=== PATIENT | male | born 1955 | race African-American/Black ===

== ENCOUNTER 2022-07-09 11:33 | Outpatient (CLI) | payer MEDICARE, SELFPAY ==
[2022-07-09 13:04] LABS: Basophils Percent Auto 0.2 % (0.2-1.2); Eosinophils Absolute Auto 0.1 K/mm3 (0-0.3); Eosinophils Percent Auto 0.9 % (0-4.4); Hematocrit 41.4 % (42.0-52.0); Hemoglobin 13.3 g/dL (14.0-18.0); Immature Granulocyte Absolute 0.04 K/mm3 (0.00-0.031); Immature Granulocyte Percent A 0.5 % (0-0.5); Lymphocytes Absolute Auto 0.92 K/mm3 (0.9-3.2); Lymphocytes Percent Auto 10.4 % (18.3-44.2); Mean Corpuscular HGB Conc 32.1 g/dl (32-36); Mean Corpuscular Hemoglobin 29.5 pg (26-34); Mean Corpuscular Volume 91.8 fl (80-100); Mean Platelet Volume 9.7 fl (7.4-10.4); Monocytes Absolute Auto 0.7 K/mm3 (0.1-0.6); Monocytes Percent Auto 7.4 % (2.6-8.5); Neutrophils Absolute Auto 7.1 K/mm3 (1.3-6.7); Neutrophils Percent Auto 80.6 % (45.5-73.1); Platelet Count Result 199 k/mm3 (150-375); Red Blood Count 4.51 M/mm3 (4.6-6.20); Red Cell Distribution Width 13.4 % (11.5-14.5); White Blood Count 8.8 K/mm3 (4.5-10.0)
[2022-07-09 19:08] LABS: Alanine Aminotransferase 27 U/L (6-50); Albumin Level 4.6 g/dL (3.5-5.1); Alkaline Phosphatase 79 U/L (38-126); Anion Gap 11 mmol/L (8-16); Aspartate Amino Transferase 39 U/L (17-59); Bilirubin,Total 0.7 mg/dL (0.2-1.3); Blood Urea Nitrogen 21 mg/dL (9-20); Calcium 9.6 mg/dL (8.4-10.2); Carbon Dioxide 29 mmol/L (22-30); Chloride 94 mmol/L (98-107); Cholesterol 251 mg/dL (0-200); Estimated Glomerular Filt Rate > 60; Glucose 95 mg/dL (65-110); HDL Direct 38 mg/dL; Potassium 3.7 mmol/L (3.4-5.0); Sodium 134 mmol/L (137-145); Triglycerides 96 mg/dL (<150)
[2022-07-09 19:19] LABS: LDL Cholesterol Direct 158 mg/dL
== END 2022-07-09 11:34 | disposition home or self-care (01) ==
LOC: ANHGOSHLAB 11:36
PROVIDERS: PCP Internal Medicine; Visit Provider Nurse Practitioner
DX: R53.83 Other fatigue (principal); Z12.5 Encounter for screening for malignant neoplasm of prostate; Z13.220 Encounter for screening for lipoid disorders; Z13.29 Encounter for screening for other suspected endocrine disorder; E78.5 Hyperlipidemia, unspecified
CPT/HCPCS: 36415; 80053; 80061; 84443; 85025

== ENCOUNTER 2022-08-28 10:45 | Outpatient (CLI) | payer MEDICARE, SELFPAY ==
--- NOTE | ~2022-08-28 | XR_ITS ---
EXAMINATION: XR chest 2V 08/28/2022 11:25 INDICATION: Chronic obstructive pulmonary disease PROCEDURE: 2 view chest COMPARISON: Comparison to multiple prior studies sequentially, with oldest reviewed study dated 07/22. FINDINGS: The lungs are clear. The lungs are hyperinflated which is consistent with, but not diagnost ic of chronic obstructive pulmonary disease. The cardiomediastinal silhouette is within normal limit s. There are no pleural effusions. There is no pneumothorax suspected. IMPRESSION: 1: NO ACUTE CARDIOPULMONARY DISEASE. Reviewed, dictated and finalized at location B.
== END 2022-08-28 10:46 | disposition home or self-care (01) ==
LOC: ANHIMG 10:48
PROVIDERS: PCP Internal Medicine; Visit Provider Internal Medicine Critical Care Medicine
DX: J44.9 Chronic obstructive pulmonary disease, unspecified (principal)
CPT/HCPCS: 71046

== ENCOUNTER 2022-09-17 12:06 | Outpatient (CLI) | payer MEDICARE, SELFPAY ==
--- NOTE | 2022-09-17 12:35 | ECHO_ITS ---
Patient Info Name: Jean Slater White Age: 67 years : 1955 Gender: Male Ht: 69 in Wt: 134 lbs BSA: 1.71 m2 HR: 56 bpm BP: 151 / 77 mmHg Technical Quality: Good Exam Date: 09/17/2022 1:07 PM Exam Location: [facility] Patient Status: Outpatient Admit Date: 09/17/2022 Staff Ordering Physician: Brea Adkins MD Shoe Stitcher Odd: Ciara Ayon RDCS Attending Provider: Brea Adkins MD Referring Physician: Jed AZEVEDO; Exam Type: CA echo doppler color flow Study Info Indications J44.9 - CHRONIC PBSTRUCTIVE PULMONARY DISEASE, UNSPECIFIED Complete two-dimensional, color flow and Doppler transthoracic echocardiogram is performed. Summary 1. Complete two-dimensional, color flow and Doppler transthoracic echocardiogram is performed. 2. Left ventricular chamber dimension is normal. 3. Left ventricular systolic function is normal, estimated at 55-60%. 4. The left ventricular diastolic function is grade I diastolic dysfunction. 5. E/e' 6 is not elevated. 6. Global longitudinal strain is abnormal at -15.6%. 7. No pulmonary hypertension, estimated pulmonary arterial systolic pressure is 27 mmHg. Left Ventricle E/e' 6 is not elevated. Global longitudinal strain is abnormal at -15.6%. Left ventricular chamber dimension is normal. Left ventricular systolic function is normal, estimated at 55-60%. The left ventricular diastolic function is grade I diastolic dysfunction. Right Ventricle Right ventricular systolic function is normal and with normal TAPSE 2.5 cm. Right ventricular chamber dimension is normal. Left Atria Left atrial chamber dimension is normal. Right Atria Right atrial chamber dimension is normal. Aortic Valve The aortic valve is trileaflet. There is no aortic valve stenosis. There is no aortic valve regurgitation. Pulmonic Valve There is no pulmonic regurgitation. Mitral Valve There is no mitral valve stenosis. There is no mitral valve regurgitation. Tricuspid Valve There is no tricuspid valve regurgitation. No pulmonary hypertension, estimated pulmonary arterial systolic pressure is 27 mmHg. Pericardium/Pleural There is no pericardial effusion. Inferior Vena Cava Normal inferior vena cava with >50% collapse upon inspiration consistent with normal right atrial pressure, 5 mmHg. Aorta The aortic root size at the sinus of Valsalva is normal. Left Ventricular Outflow Tract Name Value Normal LVOT 2D LVOT Diameter 2.0 cm LVOT Doppler LVOT Peak Gradient 3 mmHg LVOT Mean Gradient 1 mmHg LVOT VTI 16 cm LVOT VTI/AV VTI Ratio 0.9 LVOT Stroke Volume 47 ml LVOT CO 2.6 l/min LVOT CI 1.5 l/min/m2 Pulmonic Valve Name Value Normal RVOT Doppler
--- NOTE | 2022-09-25 15:26 | WPDPFTINT ---
PFT Procedure Performed PFT Procedure Performed Spirometry with Pre/Post Bronchodilator Plethysmography (Lung Vol) Diffusing Cap (DLCO) Flow Vol Loop PFT Interpretation DOS: 09/17/2022 REQUESTING: Dr Adkins REASON FOR TESTING: Asthma PULMONARY FUNCTION TESTS Results are reliable and reproducible. Spirometry: The pre-bronchodilator FEV1 is 2.17 L, 80% predicted, normal. Pre bronchodilator FVC is 3.77 L, 107% predicted, normal. FEV1/ FVC ratio is 58% which is reduced. FEF 25-75 is 0.81 L, very lowest limit of normal. This is 37% predicted. After bronchodilator, there is no change in FEV1. There is a 6% change in FVC 230 mils. The S the 5-75 decreases by 11%. This patient does not have a statistically significant response to bronchodilator. Lung volumes: Total lung capacity is 8.44 L, 141%, moderate hyperinflation. Residual volume 4 point 2 2 L, 194%, severe air trapping. RV/TLC is 50%, consistent with air trapping. Airway resistance elevated 237%. Diffusion: DLCO 15.6, 59%, moderately reduced. DLCO/VA is 2.9, 72%, lower limit of normal. Flow volume loop: There is coving of the expiratory limb consistent with obstruction. IMPRESSION: This study shows mild obstructive ventilatory impairment without response to bronchodilator, moderate hyperinflation with severe air trapping and moderate diffusion impairment which corrects for alveolar volume. This pattern may represent asthma COPD overlap in the proper clinical setting. Lack of response to bronchodilator should not preclude use if clinically indicated. Brea Adkins MD
== END 2022-09-17 12:07 | disposition home or self-care (01) ==
LOC: ANHCARD 12:07
PROVIDERS: PCP Internal Medicine; Visit Provider Internal Medicine Critical Care Medicine
DX: J44.9 Chronic obstructive pulmonary disease, unspecified (principal); J45.909 Unspecified asthma, uncomplicated; R06.02 Shortness of breath
CPT/HCPCS: 93306; 94060; 94726; 94729

== ENCOUNTER 2024-05-05 08:57 | Emergency (ER) | payer MEDICARE, SELFPAY ==
--- NOTE | ~2024-05-05 | XR_ITS ---
EXAMINATION: XR finger 3rd RT min 2V DATE: 05/05/2024 09:20 INDICATION: Right hand third digit injury and pain. TECHNIQUE: 4 views of right hand third digit were obtained. COMPARISON: None. FINDINGS: There is hyperextension at third proximal interphalangeal joint. No fracture. There is mild osteoarthritis of third metacarpophalangeal joint and distal interphalangeal joint. IMPRESSION: 1. Hyperextension at third proximal interphalangeal joint. 2. Mild polyarticular osteoarthritis. Reviewed, dictated and finalized at location A.
[2024-05-05 09:07] VITALS: BP 152/77; PULSE 75; RESP 16; TEMP 36.1; O2SAT 100
--- NOTE | 2024-05-05 09:11 | ED.UPPEXIN ---
HPI - Extremity Injury (Upper) General Chief Complaint: Extremity Injury, Upper Stated Complaint: INJURED FINGER Time Seen by Provider: 05/05/24 09:07 Source: patient and RN notes reviewed Mode of arrival: ambulatory Limitations: no limitations History of Present Illness HPI narrative: Patient presents today complaining of an injury to his right 3rd finger. He was carrying a bag of groceries into his house yesterday when he felt a sudden pain at the volar aspect of the 3rd proximal phalanx and some swelling. He currently rates his pain 10 and has been taking some Tylenol and ibuprofen with some relief. Denies numbness or tingling. Related Data Home Medications Medication Instructions Recorded Confirmed No Home Medications 05/05/24 05/05/24 Allergies Allergy/AdvReac Type Severity Reaction Status Date / Time No Known Allergies Allergy Verified 05/05/24 09:04 Review of Systems Review of Systems: CONSTITUTIONAL: Denies body aches, fever, chills, or sweats. EYES: Denies visual changes, redness, or discharge. ENT: Denies rhinorrhea, congestion, sore throat, or otalgia. CARDIOVASCULAR: Denies chest pain, palpitations, or edema. RESPIRATORY: Denies cough or dyspnea. GASTROINTESTINAL: Denies abdominal pain, nausea, vomiting, or diarrhea. GENITOURINARY: Denies dysuria or hematuria. SKIN: Denies rash, itching, or wounds. MUSCULOSKELETAL: + right 3rd finger injury NEUROLOGIC: Denies headache, numbness, tingling, or weakness. PSYCH: Denies depression or anxiety. PMFSH Past Medical History Medical History Asthma-COPD overlap syndrome GERD (gastroesophageal reflux disease) History of tobacco use Family History Family History Father Diabetes mellitus Hypertension Family history of cardiovascular disease, Onset Age: 72 Acute myocardial infarction Mother Asthma Sibling Family history of aortic aneurysm, Onset Age: 49 Grandparent Hypertension Other Family history of malignant neoplasm Family history of renal failure Social History Social History Smoking status: Former smoker Smoking end date: 11/29/04 Alcohol intake: never Comments At time of signature, I have reviewed and agree with nursing past medical, surgical, social and family history unless otherwise noted. Please see nursing chart for further information. There is no relevant family history pertinent to the presenting complaint Exam Narrative: GENERAL: Well-appearing, well-nourished, and in no acute distress. HEAD: Normocephalic, atraumatic. EYES: EOMI. No redness or drainage. Conjunctivae normal. ENT: Mucous membranes pink and moist. NECK: Normal AROM. CHEST: No respiratory distress. EXTREMITIES: Right 3rd finger: Tenderness to the volar aspect of the proximal phalanx with some firmness as well as some mild edema. Distal sensation intact. Capillary refill normal. Range of motion full and strong against resistance, but painful with extension. Mild hyperextension of the proximal phalanx. SKIN: Warm, dry, no rash. Capillary refill normal. Normal skin turgor. NEURO: No focal deficits. Alert and oriented x3. Gait steady. PSYCH: Normal affect. No signs of depression or anxiety. Course Course Level of Care: Express Care Visit Vital Signs Vital signs: Vital Signs Temperature 96.9 F L 05/05/24 09:07 Pulse Rate 75 05/05/24 09:07 Respiratory Rate 16 05/05/24 09:07 Blood Pressure 152/77 H 05/05/24 09:07 Pulse Oximetry 100 05/05/24 09:07 Temperature 96.9 F L 05/05/24 09:07 Pulse Rate 75 05/05/24 09:07 Respiratory Rate 16 05/05/24 09:07 Blood Pressure 152/77 H 05/05/24 09:07 Pulse Oximetry 100 05/05/24 09:07 Reviewed Procedures Orthopedic Splinting/Casting Injury #1: Splinting/Casting Date: 05/05/24 Splinting/Casting Time
== END 2024-05-05 09:46 | disposition home or self-care (01) ==
PROVIDERS: Emergency Provider Nurse Practitioner; PCP Internal Medicine
DX: S69.91XA Unspecified injury of right wrist, hand and finger(s), initial encounter (principal); X58.XXXA Exposure to other specified factors, initial encounter; J44.9 Chronic obstructive pulmonary disease, unspecified; K21.9 Gastro-esophageal reflux disease without esophagitis
CPT/HCPCS: 29130; 73140; 99213; G0463